=== PATIENT | male | born 1965 | race Caucasian/White ===

== ENCOUNTER 2018-08-15 08:19 | Outpatient (CLI) | payer BC, SELFPAY ==
[2018-08-15 08:38] LABS: HCT 44.5 % (40.0-50.0); HGB 15.8 g/dL (13.5-17.5)
[2018-08-15 09:26] LABS: Anion Gap 9.8 mmol/L (3-11); BUN 22 mg/dL (7-18); CO2 29.2 mmol/L (21.0-32.0); CREATININE 1.18 mg/dL (0.70-1.30); Chloride 101 mmol/L (98-107); Cholesterol 195 mg/dL (50-200); Glucose 110 mg/dL (70-100); HDL Cholesterol 45 mg/dL (40-60); LDL CHOLESTEROL 114 mg/dL (<100); Potassium 3.3 mmol/L (3.5-5.1); Sodium 140 mmol/L (136-145); Triglyceride 188 mg/dL (30-150)
== END 2018-08-15 08:39 ==
PROVIDERS: PCP General Practice; Visit Provider General Practice
DX: I10 Essential (primary) hypertension (principal); K92.2 Gastrointestinal hemorrhage, unspecified; Z00.00 Encounter for general adult medical examination without abnormal findings
CPT/HCPCS: 36415; 80051; 80061; 82947; 83721; 84520; 82565; 85014; 85018

== ENCOUNTER 2018-11-01 16:09 | Outpatient (CLI) | payer BC, SELFPAY ==
[2018-11-01 17:22] LABS: Glucose 103 mg/dL (70-100); Potassium 3.5 mmol/L (3.5-5.1)
== END 2018-11-01 16:29 ==
PROVIDERS: PCP General Practice; Visit Provider General Practice
DX: R73.09 Other abnormal glucose (principal); E87.6 Hypokalemia
CPT/HCPCS: 36415; 82947; 84132

== ENCOUNTER 2019-07-10 09:17 | Outpatient (REF) | payer BC, SELFPAY ==
[2019-07-10 11:48] LABS: HCT 44.3 % (40.0-50.0); HGB 15.6 g/dL (13.5-17.5); Mean Corp. HGB Concentration 35.2 g/dL (32.0-36.0); Mean Corpuscular Hemoglobin 29.8 pg (27.0-33.0); Mean Corpuscular Volume 84.7 fL (80-95); Mean Platelet Volume 10.9 fL (8.0-11.0); Platelet Count 255 x1000/uL (130-400); RBC 5.23 m/cumm (4.50-6.00); White Blood Cell Count 6.52 k/cumm (4.4-10.8)
[2019-07-10 11:51] LABS: ALT 29 U/L (16-63); AST 32 U/L (15-37); Albumin 4.2 g/dL (3.4-5.0); Alkaline Phosphatase 74 U/L (46-116); Anion Gap 15.4 mmol/L (3-11); BUN 15 mg/dL (7-18); Bilirubin, Total 0.6 mg/dL (0.2-1.0); CO2 25.6 mmol/L (21.0-32.0); CREATININE 1.07 mg/dL (0.70-1.30); Calcium 9.7 mg/dL (8.5-10.1); Calculated LDL 128 mg/dL; Chloride 101 mmol/L (98-107); Cholesterol 199 mg/dL (<200); Glucose 107 mg/dL (74-106); HDL Cholesterol 54 mg/dL (40-60); Potassium 3.7 mmol/L (3.5-5.1); Sodium 142 mmol/L (136-145); Total Protein 7.7 g/dL (6.4-8.2); Triglyceride 85 mg/dL (<150)
[2019-07-10 11:52] LABS: PROTEIN 18.6 mg/dL
[2019-07-10 11:56] LABS: COMMENT (LAB VIEW ONLY) 169.18 mg/dL; Microalb ug/mg Crea 3.7 ug/mg Cr
[2019-07-10 12:04] LABS: COMMENT (LAB VIEW ONLY) 170.08 mg/dL
== END 2019-07-10 09:37 ==
LOC: NCHCN 09:17
PROVIDERS: PCP General Practice; Visit Provider Nurse Practitioner Family
DX: I10 Essential (primary) hypertension (principal); R73.03 Prediabetes
CPT/HCPCS: 80053; 80061; 85027; 82043; 82565; 82570; 84156

== ENCOUNTER 2020-04-17 08:59 | Day surgery (SDC) | payer BC, SELFPAY ==
[2020-04-17 09:15] VITALS: BP 130/86; PULSE 80; RESP 18; TEMP 36.7; O2SAT 98
[2020-04-17] MEDS: Lactated Ringers 1,000 ML 80 ML IV (09:31)
--- NOTE | 2020-04-17 11:10 | W.PM.DSUDISC ---
Discharge Plan Disposition Patient Disposition: HOME Condition: Good Discharge Details Reason For Visit: colon scope Attending Provider: Juli Pope Primary Care Provider: René Brito Home Meds and New Rx's Prescriptions: No Action lisinopril 10 mg tablet 10 mg PO DAILY RF: 0 potassium chloride 10 mEq capsule, extended release 10 meq PO DAILY RF: 0 amlodipine [Norvasc] 5 mg tablet 5 mg PO DAILY RF: 0 metoprolol succinate 25 mg capsule,sprinkle,ER 24hr 25 mg PO DAILY RF: 0 hydrochlorothiazide 25 MG tablet 25 mg PO QAM RF: 0 Discharge Instructions Additional Instructions: Findings:Normal Follow up:repeat in 10 yrs time -Small light meals x24 hours -No lifting over 20 pounds or strenuous activity x24 hours Please call if you develop: fevers >101.5 Nausea or Vomiting Abdominal pain that is not transient DAY SURGERY UNIT POST COLONOSCOPY INSTRUCTIONS 1. Because there will be medication in your system for the next 24 hours, you may feel a little sleepy. Your coordination will be affected. Therefore: a. Do not drive or operate dangerous equipment for 24 hours. b. Do not drink alcohol beverages for 24 hours (not even beer). c. Plan to go home and rest for the day. 2. Generally there are no restrictions on your activity after a day or so has gone by, but you may feel a bit fatigued for a few days. 3 After you arrive home you may have a light meal and return to a normal diet as you can tolerate it without feeling sick to your stomach. 4. After surgery, you may feel pain or discomfort. This should be only transient, but if it persists please contact your doctor. 5. If there are any questions regarding the findings of your procedure, please feel free to contact your doctor. 6. If you are unable to contact your doctor with a problem, contact the hospital at [phone]. 7. Continue all your regular medications unless directed otherwise. I understand the above instructions and have no questions. Signature of Patient or Responsible Adult Escort Date/Time Name of Responsible Adult Escort Signature of Nurse Date/Time Discharge Orders Discharge Orders: Discharge Order (Routine); Ordered 04/17/20 Ordered By: Juli Pope
--- NOTE | 2020-04-17 11:22 | W.COLOREPORT ---
Date of service: 04/17/20 Time of Service: 11:22 Colonoscopy Report Date of procedure: 04/17/20 Pre-op diagnosis general: CRC screen Post-op diagnosis procedure note: same Surgeon: Juli Pope Anesthesia proc note operative: MAC Estimated blood loss (mL): 0 Pathology: none sent Complications: None Disposition: same day Prep: Miralax/Dulcolax Retraction Time: 10 mins Procedure Description: After informed consent was obtained the patient was taken to the procedure room and placed in a left decubitous position. Monitors were applied and a time out was done. The patients name, date of , procedure, allergies to medications and metal in their body was reviewed. The patient was then sedated. Once sedated and comfortable a rectal exam was done. External exam was normal. Internal exam revealed a normal sphincter tone and no palpable masses. The prostate nl. The scope was then introduced and retrofelexed. no internal hemorrhoids were identified. The scope was then advanced to the cecum w/out difficulty. The TI and appendiceal orifice were identified. The prep was good. The scope was then slowly retracted over 10 minutes back into the rectum. No polyps, diverticula, or AVMs identified. The mucosa is pink and healthy with good tone. The scope was removed and the patient was woken up and taken back to Same day surgery in stable condition. The patient tolerated the procedure well and there were no immediate complications. Follow up: The patient should follow up in 10 years unless they develop changes in bowel habits or other new gastrointestinal complaints.
[2020-04-17 11:52] VITALS: BP 120/73; PULSE 68; RESP 18; TEMP 36.1; O2SAT 97
== END 2020-04-17 12:03 | disposition home or self-care (01) ==
PROVIDERS: PCP Nurse Practitioner Family; Visit Provider Surgery
PROC: 0DJD8ZZ Inspection of Lower Intestinal Tract, Via Natural or Artificial Opening Endoscopic (ICD-10-PCS; CPT 45378; principal; 2020-04-17 10:00)
DX: Z12.11 Encounter for screening for malignant neoplasm of colon (principal); I10 Essential (primary) hypertension
CPT/HCPCS: 45378

== ENCOUNTER 2020-09-05 00:15 | Outpatient (REF) | payer BC, SELFPAY ==
[2020-09-04 16:31] LABS: Anion Gap 8.9 mmol/L (3-11); BUN 16 mg/dL (7-18); CO2 27.1 mmol/L (21.0-32.0); Calcium 9.7 mg/dL (8.5-10.1); Chloride 100 mmol/L (98-107); Glucose 103 mg/dL (74-106); Potassium 4.2 mmol/L (3.5-5.1); Sodium 136 mmol/L (136-145)
== END 2020-09-05 00:16 ==
LOC: NCHCN 00:15
PROVIDERS: PCP Nurse Practitioner Family; Visit Provider Nurse Practitioner Family
DX: I10 Essential (primary) hypertension (principal)
CPT/HCPCS: 80048

== ENCOUNTER 2021-02-13 16:46 | Outpatient (REF) | payer BC, SELFPAY ==
[2021-02-15 11:01] LABS: COVID-19 RT-PCR UVMMC Result Negative (Negative)
== END 2021-02-13 16:47 | disposition home or self-care (01) ==
LOC: LBN 16:46
PROVIDERS: PCP Nurse Practitioner Family; Visit Provider Family Medicine
DX: Z20.822 Contact with and (suspected) exposure to COVID-19 (principal); R05 Cough
CPT/HCPCS: U0003

== ENCOUNTER 2021-05-01 10:20 | Outpatient (REF) | payer BC, SELFPAY ==
[2021-05-02 12:22] LABS: COVID-19 RT-PCR UVMMC Result Negative (Negative)
== END 2021-05-01 10:21 | disposition home or self-care (01) ==
LOC: LBN 10:20
PROVIDERS: PCP Nurse Practitioner Family; Visit Provider Physician Assistant Medical
DX: Z20.822 Contact with and (suspected) exposure to COVID-19 (principal); J06.9 Acute upper respiratory infection, unspecified
CPT/HCPCS: U0003

== ENCOUNTER 2021-06-12 17:22 | Outpatient (REF) | payer BC, SELFPAY ==
[2021-06-12 16:56] LABS: Anion Gap 7.2 mmol/L (3-11); BUN 15 mg/dL (7-18); CO2 27.8 mmol/L (21.0-32.0); CREATININE 0.9 mg/dL (0.70-1.30); Calcium 9.9 mg/dL (8.5-10.1); Chloride 102 mmol/L (98-107); Glucose 103 mg/dL (74-106); Potassium 3.9 mmol/L (3.5-5.1); Sodium 137 mmol/L (136-145)
== END 2021-06-12 17:23 | disposition home or self-care (01) ==
LOC: NCHCN 17:22
PROVIDERS: PCP Nurse Practitioner Family; Visit Provider Nurse Practitioner Family
DX: I10 Essential (primary) hypertension (principal)
CPT/HCPCS: 80048

== ENCOUNTER 2022-05-18 22:33 | Outpatient (REF) | payer BC, SELFPAY ==
[2022-05-18 20:17] LABS: Anion Gap 7.7 mmol/L (3-11); BUN 17 mg/dL (7-18); CO2 27.3 mmol/L (21.0-32.0); CREATININE 1.3 mg/dL (0.70-1.30); Calcium 9.4 mg/dL (8.5-10.1); Chloride 102 mmol/L (98-107); Estimated GFR 63.68 (mL/min/1.73m2); Glucose 94 mg/dL (74-106); Potassium 3.9 mmol/L (3.5-5.1); Sodium 137 mmol/L (136-145)
== END 2022-05-18 22:34 | disposition home or self-care (01) ==
LOC: NCHCN 22:33
PROVIDERS: Visit Provider Nurse Practitioner Family
DX: Z00.00 Encounter for general adult medical examination without abnormal findings (principal); I10 Essential (primary) hypertension
CPT/HCPCS: 80048

== ENCOUNTER 2023-04-06 13:29 | Outpatient (REF) | payer BC, SELFPAY ==
[2023-04-06 19:54] LABS: ALT 26 U/L (16-63); AST 34 U/L (15-37); Albumin 4.1 g/dL (3.4-5.0); Alkaline Phosphatase 79 U/L (46-116); BUN 13 mg/dL (7-18); Bilirubin, Total 0.7 mg/dL (0.2-1.0); CREATININE 1.1 mg/dL (0.70-1.30); Calcium 9.5 mg/dL (8.5-10.1); Calculated LDL 108 mg/dL (<100); Chloride 101 mmol/L (98-107); Cholesterol 182 mg/dL (<200); Estimated GFR 77.33 (mL/min/1.73m2); Glucose 97 mg/dL (74-106); HDL Cholesterol 57 mg/dL (40-60); Potassium 4.1 mmol/L (3.5-5.1); Sodium 136 mmol/L (136-145); Total Protein 7.7 g/dL (6.4-8.2); Triglyceride 88 mg/dL (<150)
[2023-04-07 19:51] LABS: PSA, Screening 0.9 ng/mL (<=3.5)
== END 2023-04-06 13:30 | disposition home or self-care (01) ==
LOC: NCHCN 13:29
PROVIDERS: Visit Provider Nurse Practitioner Family
DX: I10 Essential (primary) hypertension (principal); Z12.5 Encounter for screening for malignant neoplasm of prostate; Z13.220 Encounter for screening for lipoid disorders
CPT/HCPCS: 80053; 80061; 84153

== ENCOUNTER 2024-02-24 11:51 | Outpatient (REF) | payer BC, SELFPAY ==
[2024-02-24 18:48] LABS: Abs Immature Grans 0.02 10^3/uL (0.0-0.06); Absolute Basophil Count 0.05 10^3/uL (0.0-0.2); Absolute Eosinophil Count 0.14 10^3/uL (0.0-0.7); Absolute Lymphocyte Count 2.03 10^3/uL (1.2-3.4); Absolute Neutrophil Count 3.88 10^3/uL (1.2-6.7); Basophils % 0.7 %; Eosinophils % 2.1 %; HCT 46.4 % (40.0-50.0); HGB 16.1 g/dL (13.5-17.5); Immature Grans % 0.3 %; Lymphocytes % 29.8 %; MCH 30.8 pg (27.0-33.0); MCHC 34.7 % (32.0-36.0); MCV 89 fL (80-95); MPV 10.8 fL (8.0-11.0); Monocytes % 10.3 %; Neutrophils % 56.8 %; Platelet Count 204 10^3/uL (130-400); RBC 5.22 10^6/uL (4.36-5.78); RDW 13.1 % (11.8-14.1); RDW-SD 42.5 fL; WBC 6.82 10^3/uL (4.4-10.8)
[2024-02-24 19:29] LABS: ALT 26 U/L (16-63); AST 27 U/L (15-37); Alkaline Phosphatase 75 U/L (46-116); Anion Gap 9.4 mmol/L (3-11); BUN 12 mg/dL (7-18); Bilirubin, Total 0.86 mg/dL (0.2-1.0); CO2 26.6 mmol/L (21.0-32.0); CREATININE 1.1 mg/dL (0.70-1.30); Calcium 9.4 mg/dL (8.5-10.1); Calculated LDL 107 mg/dL (<100); Chloride 102 mmol/L (98-107); Cholesterol 176 mg/dL (<200); Estimated GFR 76.85 (mL/min/1.73m2); Glucose 96 mg/dL (74-106); HDL Cholesterol 54 mg/dL (40-60); Potassium 4.4 mmol/L (3.5-5.1); Sodium 138 mmol/L (136-145); TSH (W/Ref FT4) 1.37 uIU/mL (0.36-3.74); Total Protein 7.3 g/dL (6.4-8.2); Triglyceride 77 mg/dL (<150); Vitamin D 25 Total 26.2 ng/mL (30-100)
== END 2024-02-24 11:52 | disposition home or self-care (01) ==
LOC: NCHCN 11:51
PROVIDERS: Visit Provider Nurse Practitioner Family
DX: R53.83 Other fatigue (principal); E55.9 Vitamin D deficiency, unspecified; Z13.220 Encounter for screening for lipoid disorders
CPT/HCPCS: 80053; 80061; 82306; 84443; 85025

== ENCOUNTER 2024-06-03 22:52 | Emergency (ER) | payer BC, SELFPAY ==
[2024-06-03 22:55] VITALS: BP 151/103; PULSE 65; RESP 16; TEMP 36.4; O2SAT 99
--- OUTSIDE RECORDS SUMMARY | 2024-06-03 22:56 | XMS_ITS | Encounter Summary ---
Author Organization [facility] Address [facility] [place] [address] Care Team Providers Care Sugar Cane Farm Manager Name Role Phone Omar Ballard MD Primary Care Provider Encounter Details Date Type Department Care Team (Latest Contact Info) Description 05/24/2016 1:30 PM EDT - 05/24/2016 1:58 PM EDT Hospital Encounter XRay at [address] [place] [id number] Physical examination of potential organ donor; Stem cell donor Discharge Disposition: Home Social History Tobacco Use Types Packs/Day Years Used Date Smoking Tobacco: Former Cigarettes 1 15 1 - 05/24/1996 Smokeless Tobacco: Never Sex and Gender Information Value Date Recorded Sex Assigned at Not on file Gender Identity Not on file Sexual Orientation Not on file documented as of this encounter Plan of Treatment Not on file documented as of this encounter Procedures Procedure Name Priority Date/Time Associated Diagnosis Comments XR CHEST PA AND LATERAL Routine 05/24/2016 1:51 PM EDT Physical examination of potential organ donor Stem cell donor documented in this encounter Results * XR Chest PA & Lateral (Generic) (05/24/2016 1:51 PM EDT) Anatomical Region Laterality Modality Chest N/A Digital Radiogra phy Impressions 05/24/2016 2:21 PM EDT No significant abnormality. Narrative 05/24/2016 2:21 PM EDT EXAMINATION: XR CHEST PA AND LATERAL (GENERIC) CLINICAL HISTORY: POTENTIAL STEM CELL DONOR TECHNIQUE: Standing PA and lateral chest COMPARISON: None FINDINGS: The lungs are clear. The cardiomediastinal silhouette and qi appear normal. No pleural effusion or significant bone abnormality is seen. Procedure Note Yo Medina MD - 05/24/2016 EXAMINATION: XR CHEST PA AND LATERAL (GENERIC) CLINICAL HISTORY: POTENTIAL STEM CELL DONOR TECHNIQUE: Standing PA and lateral chest COMPARISON: None FINDINGS: The lungs are clear. The cardiomediastinal silhouette and qi appearnormal. No pleural effusion or significant bone abnormality is seen. IMPRESSION No significant abnormality. James Jean MD IMG DX ORDERABLE S documented in this encounter Visit Diagnoses Diagnosis Physical examination of potential organ donor Other specified general medical examination Stem cell donor documented in this encounter Care Teams Sugar Cane Farm Manager Relationship Specialty Start Date End Date Omar Ballard MD [address] [facility],[place] [address] PCP - General Obstetrics and Gynecology 05/24/16 documented as of this encounter
--- OUTSIDE RECORDS SUMMARY | 2024-06-03 22:56 | XMS_ITS | Encounter Summary ---
Author Organization [facility] [place] [address] Care Team Providers Care Protective Clothing Issuer Name Role Phone Omar Ballard MD Primary Care Provider Encounter Details Date Type Department Care Team (Latest Contact Info) Description 05/24/2016 1:59 PM EDT - 05/24/2016 2:14 PM EDT Hospital Encounter [place] [phone] Physical examination of potential organ donor; Stem [...] Procedure Name Priority Date/Time Associated Diagnosis Comments EKG 12-LEAD Routine 05/24/2016 2:09 PM EDT Physical examination of potential organ donor Stem cell donor documented in this encounter Results * EKG 12 Lead (05/24/2016 2:09 PM EDT) Ventricular rate 49 BPM MUSE SYSTEM Atrial Rate 49 BPM MUSE SYSTEM P-R Interval 154 ms MUSE SYSTEM QRS Duration 146 ms MUSE SYSTEM Q-T Interval 464 ms MUSE SYSTEM QTC Calculated (Bezet) 419 ms MUSE SYSTEM Calculated P [place] 15 degrees MUSE SYSTEM Calculated R [place] 24 degrees MUSE SYSTEM Calculated T [place] 29 degrees MUSE SYSTEM INTERPRETATION Marked sinus bradycardia Right bundle branch block Abnormal ECG No previous ECGs available Confirmed by Tenzin Sanchez MD ([id number]) on 05/24/2016 4:16:35 PM MUSE SYSTEM 05/24/2016 2:09 PM EDT 05/24/2016 4:16 PM EDT James Jean MD ECG ORDERABLES MUSE SYSTEM documented in this encounter Visit Diagnoses Diagnosis Physical examination of potential organ donor Other specified general medical examination Stem cell donor documented in this encounter Care Teams Protective Clothing Issuer Relationship Specialty Start Date End Date Omar Ballard MD [address] [place] [address] PCP - General Obstetrics and Gynecology 05/24/16 documented as of this encounter
--- OUTSIDE RECORDS SUMMARY | 2024-06-03 22:56 | XMS_ITS | Encounter Summary ---
Author Organization [facility] Address [address] [place] [address] Care Team Providers Care Powder Mixer Name Role Phone Unavailable Primary Care Provider Unavailabl e Encounter Details Date Type Department Care Team (Late st Contact Info) Description 02/14/2021 Lab Requisition [facility] Pathology & Laboratory Medicine - [facility] [address] [place] [address] Outr Resulting Lab, Provider Social History Tobacco Use Types Packs/Day Years Used Date Smoking Tobacco: Never Assessed Sex and Gender Information Value Date Recorded Sex Assigned at Not on file Gender Identity Not on file Sexual Orientation Not on file documented as of this encounter Plan of Treatment Not on file documented as of this encounter Procedures Procedure Name Priority Date/Time Associated Diagnosis Comments ZZCOVID-19 TEST [facility] PCR Today 02/13/2021 15:35 EDT COVID-19 TESTING Routine 02/13/2021 15:3 5 EDT documented in this encounter Results * [facility] (02/13/2021 15:35 EDT) Swab ENTIRE NASOPHARYNX / Unknown 02/13/2021 15:35 EDT 02/14/2021 21:25 EDT Provider Outr Resulting Lab MICROBIOLOGY - GENERAL ORDERABLES [facility] [address] [place] [address] * COVID-19 TESTING (02/13/2021 15:35 EDT) COVID-19 rt-PCR Result Negative Negative 02/15/2021 10:55 EDT [facility] Comment: This test has not been FDA cleared or approved. This test has been authorized by FDA under an EUA for use by authorized laboratories. This test has been authorized only for detection of nucleic acid from 2019-nCoV, not for any other viruses or pathogens. This test is only authorized for the duration of the declaration that circumstances exist justifying the authorization of emergency use of in vitro diagnostic tests for detection and/or diagnosis of 2019-nCoV under section 564(b)(1) of Act, 21 U.S.C ?? 360bbb-3(b) (1), unless the authorization is terminated or revoked sooner. Negative results do not preclude 2019-nCoV infection and should not be used as the sole basis for treatment or other patient management decisions. Negative results must be combined with clinical observations, patient history, and epidemiological information. Testing was performed using the ambrosio SARS-CoV-2 assay ([employer] on the Ambrosio 6800 System Performing Lab Ambrosio [address] [facility] 02/15/2021 10:55 EDT [facility] Swab 02/13/2021 15:3 5 EDT 02/14/2021 21:25 EDT Provider Outr Resulting Lab MICROBIOLOGY - GENERAL ORDERABLES [facility] [address] [place] [address] documented in this encounter Visit Diagnoses Not on filedocumented in this encounter
--- OUTSIDE RECORDS SUMMARY | 2024-06-03 22:56 | XMS_ITS | Encounter Summary ---
Author Organization [facility] [place] [address] Care Team Providers Care Preschool Disability Teacher Name Role Phone Omar Ballard MD Primary Care Provider [phone] Reason for Visit * Reason Comments Advice Only Encounter Details Date Type Department Care Team (Late st Contact Info) Description 05/24/2016 2:30 PM EDT Office Visit Hematology and Oncology at [facility] [place] [address] Yessi Goldman, RN Stem cell donor Social History Tobacco Use Types Packs/Day Years Used Date Smoking Tobacco: Former Cigarettes 1 15 1 - 05/24/1996 Smokeless Tobacco: Never Sex and Gender Information Value Date Recorded Sex Assigned at Not on file Gender Identity Not on file Sexual Orientation Not on file documented as of this encounter Last Filed Vital Signs Vital Sign Reading Time Taken Comments Blood Pressure 153/88 05/24/2016 2:53 PM EDT Pulse 66 05/24/2016 2:53 PM EDT Temperature 36.6 ??C (97.9 ??F) 05/24/2016 2:53 PM ED T Respiratory Rate 18 05/24/2016 2:53 PM EDT Oxygen Saturation 99% 05/24/2016 2:53 PM EDT Inhaled Oxygen Concentration - - Weight 74.1 kg (163 lb 6.4 oz) 05/24/2016 2:53 P M EDT Height 169.5 cm (5' 6.73) 05/24/2016 2:53 PM ED T Body Mass Index 25.8 05/24/2016 2:53 PM EDT documented in this encounter Progress Notes * Yessi Goldman RN - 05/24/2016 2:30 PM EDT 05/24/16 BMT Coordinator Note/ Sibling donor BMT Coordinator: Healthy Donor Teaching Visit DIAGNOSIS: Healthy Sibling Donor REASON FOR VISIT: To introduce self as Bone Marrow Transplant Nurse Coordinator. Review plan for upcoming work-up to determine donor clearance. Reinforce the Educational Materials Global overview of Stem Cell Mobilization with Neupogen and Stem Cell Apheresis Global overview of bone marrow harvest collection and recovery period (as a back up method for stemcell collection) Subjective: I am ready to do this for my sister. Objective: Haris is here for history and phyiscal to determine if he is medically stable to proceed to a peripheral blood stem cell collection. I have coordinated the work- up and escorted the donor to the blood donor room for a venous assessment. The venous assessment indicates that there is no need for a catheter for him and the procedure can be done peripherally. The collection process discussed in detail and Haris came prepared after reading the material I senthim. PBSC : I reviewed potential side effects the likely side effects of G-CSF injections including flu-like symptoms, bone pain, nausea and headache. We discussed unlikely but potential side effects of injections that are more severe -severe pain, dizziness, fever, nausea/vomiting. We discussed that the symptoms will disappear usually 48 hours after the last injection. In addition -we discussed the rare but reported side effect of Neupogen -head bleed and splenic bleed. We discussed this bleeding risk and the need to seek emergency care right away for severe belly or head pain for immediate evaluation. We discussed what to expect during the stem cell aphresis collection process, including length of time on apheresis machine, possible side effects ie: hypocalcemia, dizziness and low platelets after procedure. We discussed the need to stay healthy and hydrated during the collection procedure We discussed the need to abstain from ETOH during and prior to mobilization due to marrow suppression. We discussed reporting new findings in his health that could delay or change the collection timeline. [place]: We discussed the process for a bone marrow harvest as a back up method of a collection in the eventthat his stem cells do not mobilize. Discussed anesthesia options and donor will meet the anesthesia staff the day of the procedure, he would like general anesthesia. We reviewed potential complications of the procedure and post op issues. I spent over 30 minutes in education session reviewing the above and ensuring that Haris understood the content explained in the consent form that he signed today in clinic. Assessment: The above information was reviewed with the patient and pt verbalized understanding. Haris was asking appropriate questions and came to the appointment well informed. Materials given to the Patient: No calendar at this time, no specific date for g-prime awaiting PET scan results on his sister to determine timeline. Contact numbers given for future questions or concerns: XXX RN business card. Plan: IDM's mailed and results expected by early next week RN/ Donor coordinator will forward to UNISHEAR OPERATOR to assess for completion of her note. Once donor is cleared we will review plans: Timeline for PBSC collection is unclear but wanted to clear donor so if we need to move quickly we can. Nurse Coordinator will call the donor the week of donation to confirm all plans and instructions are still understood. documented in this encounter Plan of Treatment Not on file documented as of this encounter Visit Diagnoses Diagnosis Stem cell donor documented in this encounter Care Teams Preschool Disability Teacher Relationship Specialty Start Date End Date Omar Ballard MD [address] [facility],[address] [address] PCP - General Obstetrics and Gynecology 05/24/16 documented as of this encounter
--- OUTSIDE RECORDS SUMMARY | 2024-06-03 22:56 | XMS_ITS | Referral Summary ---
Author Organization [facility] Address [address] [place] [address] Care Team Providers Care Brake Repairer Name Role Phone Unavailable Primary Care Provider Unavailabl e Social History Tobacco Use Types Packs/Day Years Used Date Smoking Tobacco: Never Assessed Sex and Gender Information Value Date Recorded Sex Assigned at Not on file Gender Identity Not on file Sexual Orientation Not on file Plan of Treatment Not on file
--- OUTSIDE RECORDS SUMMARY | 2024-06-03 22:56 | XMS_ITS | Clinical Summary ---
Author Organization [facility] Address [address] [place] [address] Care Team Providers Care Recovery Analyst Name Role Phone Unavailable Primary Care Provider Unavailabl e Social History Tobacco Use Types Packs/Day Years Used Date Smoking Tobacco: Never Assessed Sex and Gender Information Value Date Recorded Sex Assigned at Not on file Gender Identity Not on file Sexual Orientation Not on file Plan of Treatment Health Maintenance Due Date Last Done Comments Hepatitis C Screen 1965 Hepatitis B Vaccine (1 of 3 - 19+ 3-dose series) 02/07 COVID-19 Vaccine (2022- season) 2023
--- OUTSIDE RECORDS SUMMARY | 2024-06-03 22:56 | XMS_ITS | Encounter Summary ---
Author Organization [facility] Address [facility] [place] [address] Care Team Providers Care Car Shunter Name Role Phone Alejandro LUO MD, Aristides Rancho Primary Care Provider Encounter Details Date Type Department Care Team (Late st Contact Info) Description 05/10/2016 Orders Only [place]ematology [place] [id number] Fernie Grace MD [facility] [address] [place]EMATOLOGY [place] [address] Physical examination of potential organ donor; Stem cell donor Social History Tobacco Use Types Packs/Day Years Used Date Smoking Tobacco: Never Assessed Sex and Gender Information Value Date Recorded Sex Assigned at Not on file Gender Identity Not on file Sexual Orientation Not on file documented as of this encounter Plan of Treatment Not on file documented as of this encounter Results * Urinalysis with reflex Culture (05/24/2016 2:48 PM EDT) Glucose, Urine Dipstick Negative Negative mg/dL [facility] Protein, Urine Dipstick Negative Negative mg/dL [facility] Bilirubin, Urine Dipstick Negative Negative mg/dL [facility] Comment: Clinical correlation required for positive Urine Bilirubin results as false positive may occur with some drugs and drug related products. If a false positive is suspected a serum total bilirubin should be considered if clinically indicated. Urobilinogen, Urine Dipstick Normal Normal mg/dL [facility] pH, Urn (dipstick) 6.0 5.0 - 8.0 [facility] Blood, Urine Dipstick Negative Negative mg/dL [facility] Ketone, Urine Dipstick Negative Negative mg/dL [facility] Nitrite, Urine Dipstick Negative Negative [facility] Leukocytes, Urine Dipstick Negative Negative mcL [facility] Appearance, Urine Dipstick Clear Clear [facility] Specific [place] Urine Automated 1.014 1.002 - 1.030 [facility] Color, Urine Dipstick Yellow Yellow [facility] RBC, Urine <1 0 - 3 /HPF [facility] WBC, Urine <1 0 - 3 /HPF [facility] Squamous Epithelial Cells, Urine 1 <=4 /HPF [facility] Reflex to Culture No [facility] Urine specimen obtained by clean catch procedure (specimen) 05/24/2016 2:48 PM EDT 05/24/2016 2:51 PM EDT Narrative Resulting Agency Comment Spec In Lab James Jean MD URINE ORDERABLES Performing Organization Address City/Va Hospital/ZIP Co de Phone Number [facility] [place] [address] * Lactate Dehydrogenase (05/24/2016 2:41 PM EDT) Lactate Dehydrogenase 186 110 - 220 unit/L [facility] Blood specimen (specimen) 05/24/2016 2:41 PM EDT 05/24/2016 2:52 PM EDT Narrative Resulting Agency Comment Spec In Lab James Jean MD CHEMISTRY ORDERA BLES Performing Organization Address City/Va Hospital/ZIP Co de Phone Number [facility] [place] [address] * (ABNORMAL) Comprehensive metabolic panel (non-fasting) (05/24/2016 2:41 PM EDT) Glucose 100 65 - 199 mg/dL [facility] Comment:Diabetes: >=200 mg/d L plus symptoms Blood Urea Nitrogen 17 10 - 20 mg/dL [facility] Creatinine 1.11 0.80 - 1.50 mg/dL [facility] Comment: Please note that the pediatric reference intervals supplied above were not validated at [facility] [place]. Results from pediatric patients should be interpreted in conjunction to the patient's age, height and muscle mass. Sodium 141 135 - 145 mmol/L [facility] Potassium 3.6 3.5 - 5.0 mmol/L [facility] Comment: Please note: ??Patients with WBC >100,000 may have falsely elevated Potassium levels. ??For accurate Potassium quantification in these patients send serum separator tube (gold top) for subsequent determinations. ??Contact the Clinical Chemistry Laboratory if there are any questions. Chloride 99 98 - 107 mmol/L [facility] Carbon Dioxide 26 22 - 31 mmol/L [facility] Anion Gap 16(H) 5 - 15 mmol/L [facility] Calcium 9.8 8.5 - 10.5 mg/dL [facility] Protein, Total 7.6 6.1 - 8.0 gm/dL [facility] Albumin 4.6 3.2 - 5.2 gm/dL [facility] Aspartate Aminotransferase 33 0 - 39 unit/L [facility] Alanine Aminotransferase 20 0 - 55 unit/L [facility] Alkaline Phosphatase 65 40 - 120 unit/L [facility] Bilirubin, Total 0.8 0.2 - 1.3 mg/dL [facility] Bilirubin, Direct 0.2 0.0 - 0.3 mg/dL [facility] Est Glomerular Filtration Rate >60 >=60 [facility] Comment: This estimated GFR (eGFR) value was calculated using the MDRD equation which has been validated on patients between the ages of 18 and 70. The MDRD should not be used to assess kidney function in patients < 18 years of age or in patients with extremes of body mass, or in patients with acute kidney failure. This value should be multiplied by 1.2 for patients. For further information please copy and paste the following links into your internet browser. [email or web address] Blood specimen (specimen) 05/24/2016 2:41 PM EDT 05/24/2016 2:52 PM EDT Narrative Resulting Agency Comment Spec In Lab James Jean MD CHEMISTRY ORDERA BLES Performing Organization Address [facility] Hospital/[facility] Co de Phone Number [facility] [place] [address] * EKG 12 Lead (05/24/2016 2:09 PM EDT) Ventricular rate 49 BPM MUSE SYSTEM Atrial Rate 49 BPM MUSE SYSTEM P-R Interval 154 ms MUSE SYSTEM QRS Duration 146 ms MUSE SYSTEM Q-T Interval 464 ms MUSE SYSTEM QTC Calculated (Bezet) 419 ms MUSE SYSTEM Calculated P [place] 15 degrees MUSE SYSTEM Calculated R [place] 24 degrees MUSE SYSTEM Calculated T [place] 29 degrees MUSE SYSTEM INTERPRETATION Marked sinus bradycardia Right bundle branch block Abnormal ECG No previous ECGs available Confirmed by Tenzin Sanchez MD ([id number]) on 05/24/2016 4:16:35 PM MUSE SYSTEM 05/24/2016 2:09 PM EDT 05/24/2016 4:16 PM EDT James Jean MD ECG ORDERABLES Performing Organization Address [facility] de Phone Number MUSE SYSTEM * XR Chest PA & Lateral (Generic) [...] specified general medical examination Stem cell donor Physical examination of potential organ donor Other specified general medical examination Stem cell donor documented in this encounter Care Teams Car Shunter Relationship Specialty Start Date End Date Aristides Allen III, MD [address] [place] [id number] PCP - General 06/23/10 05/23/16 documented as of this encounter
--- OUTSIDE RECORDS SUMMARY | 2024-06-03 22:56 | XMS_ITS | Clinical Summary ---
Author Organization [facility] Address [facility] [place] [address] Care Team Providers Care Senior Oracle Database Developer Name Role Phone Omar Ballard MD Primary Care Provider Allergies No known active allergies Medications Medication Sig Dispensed Refills Start Date End Date Status hydroCHLOROthiazide (HYDRODIURIL) 25 mg Tablet Take 25 mg by mouth daily. Active atenolol (TENORMIN) 25 mg Tablet Take 25 mg by mouth daily. Active Social History Tobacco Use Types Packs/Day Years Used Date Smoking Tobacco: Former Cigarettes 1 15 1 - 05/24/1996 Smokeless Tobacco: Never Sex and Gender Information Value Date Recorded Sex Assigned at Not on file Gender Identity Not on file Sexual Orientation Not on file Last Filed Vital Signs Vital Sign Reading [...] Mass Index 25.8 05/24/2016 2:53 PM EDT Plan of Treatment Health Maintenance Due Date Last Done Comments CT Colonography 1965 Colonoscopy 1965 Colorectal Cancer Screening 1965 FIT DNA 1965 FIT 1965 Sigmoidoscopy (10 year) with FIT yearly 1965 Sigmoidoscopy 1965 HIV screen 02/07/1982 Hepatitis C Screening 02/07/1982 Lipid Screening 02/07/1982 Tetanus/Diphtheria/Pertussis Vaccines (1 - Tdap) 02/07 Zoster vaccine (1 of 2) 02/07/2014 Advance Directive 02/07/2019 Covid-19 Vaccine (1 - season) 2024 Influenza (Flu) vaccine (1 o f 1 - Influenza standard series) 04/01/2024 Care Teams Senior Oracle Database Developer Relationship Specialty Start Date End Date Omar Ballard MD [address] [facility],[address] [address] PCP - General Obstetrics and Gynecology 05/24/16
--- OUTSIDE RECORDS SUMMARY | 2024-06-03 22:56 | XMS_ITS | Encounter Summary ---
Author Organization [facility] [place] [address] Care Team Providers Care Candle Cutter Name Role Phone Omar Ballard MD Primary Care Provider Encounter Details Date Type Department Care Team (Late st Contact Info) Description 05/24/2016 3:15 PM EDT Office Visit Hematology [place] [address] Fernie Grace MD [facility] [address] [place] [address] Ev Santillan, DIRECTOR ORACLE [facility] [address] [place] [address] Stem cell donor Social History Tobacco Use Types Packs/Day Years Used Date Smoking Tobacco: Former Cigarettes 1 15 1 - 05/24/1996 Smokeless Tobacco: Never Sex and Gender Information Value Date Recorded Sex Assigned at Not on file Gender Identity Not on file Sexual Orientation Not on file documented as of this encounter Progress Notes * Ev Santillan, DIRECTOR ORACLE - 05/24/2016 3:15 PM EDT [facility] [place] [address] ALLOGENEIC PERIPHERAL STEM CELL/BONE MARROW DONOR EVALUATION CHIEF COMPLAINT: Haris Werner is a 51 y.o. male being medically evaluated for as a candidate for stem cell donation. HISTORY OF PRESENT CONDITION: Healthy ACTIVE MEDICAL PROBLEMS: 1. HTN - Dx 2013 HOSPITALIZATIONS: 2. Hernia operation PAST MEDICAL HISTORY: PAST SURGICAL HISTORY: 1. Hernia repair - 1995 - [facility] SOCIAL HISTORY: ??? Haris lives in [facility] with Lindsay Duenas ??? Occupation: builder, property management ??? Tobacco: quit 20 years ago - 15 pack year history ??? ETOH: couple mixed drinks - whisky/day ??? HIV/Transmissable Infection Risks: No high risk behaviors Tattooing - if present dates: none Ear or Body Piercing- if present: dates: none FAMILY HISTORY: ??? Father: 2016 CVA ??? Mother: Alive and well - COPD/smoker ??? Siblings: Sister - lymphoma - 2 brothers - alive and well MEDICATIONS: atenolol and HCTZ ALLERGIES: None REVIEW OF SYSTEMS: Energy level: Good Recent infections/ anitbiotics: None Pain: No Appetite: Good Fevers/chills/sweats: No Bruising/bleeding/melena: No Recent infections: No Nausea/vomiting/diarrhea/constipation: No SOB/BENDER/asthma/sleep apnea: No- does snore Chest Pains/heart attack/Stroke: No Change in adenopathy or other masses: left shoulder mass - has had for years with no changes Unexpected weight loss or gain: No Skin rashes or petechiae: No Wears contact ??? History of blood transfusions: None ??? History of tissue transplant [bone or cornea]? None ??? Any history of concussion or head injury: None ??? Any history of cancer, including leukemia: None ??? History of toxin exposures: None ??? Family history of blood diseases: sister with NHL ??? Immunizations within the last month, including smallpox: None ??? Any close contact with anyone who has received smallpox vaccine: No ??? Planning any immunizations: No ??? History of hepatitis: None ??? History of IV drug use/accidental needle stick: None ??? History of DVT or PE (for PBSC donors): None ??? History of iritis or episcleritis(for PBSC donors): None ??? History of autoimmune disease including rheumatic diseases and thyroid disorders (for PBSC donors): None ??? History of Parasitic blood disease, such as leishmaniasis or babesiosis? None ??? History of positive west Nile Virus: No ??? In the past 3 years have you had malaria?: No ??? Have you or any relatives ever been diagnosed with Crutxzfeldt- Pato Disease: No ??? In the past 3 years have you lived outside the [place]? No ??? Travel in the last year outside of the [facility] [place][where and how long]? No PHYSICAL EXAM: Vital Signs: There were no vitals taken for this visit. GENERAL: Well-developed, well-nourished, well-appearing 51 y.o. male in no acute distress. HEENT: Sinuses non-tender. Oral pharynx clear. No hyperemia, exudative plaques or lesions. NECK: Supple without palpable masses or adenopathy. BREASTS: Normal bilaterally. CARDIAC: Regular rate and rhythm without S3,S4 or murmurs. LUNGS: Clear to auscultation bilaterally. ABDOMEN: Soft, flat, non-tender and non-distended without palpable masses or hepatosplenomegaly. Normoactive bowel sounds. EXTREMITIES: No cyanosis or edema. SKIN: No rashes, bruises or petechiae. LYMPH: No palpable lymphadenopathy. NEURO: Alert and oriented to person, place and time. LABORATORY STUDIES: No results found for this or any previous visit (from the past 72 hour(s)). IDM's: PENDING CXR: EXAMINATION: XR CHEST PA AND LATERAL (GENERIC) ?? CLINICAL HISTORY: POTENTIAL STEM CELL DONOR ?? TECHNIQUE: Standing PA and lateral chest ?? COMPARISON: None ?? FINDINGS: The lungs are clear. The cardiomediastinal silhouette and qi appear normal. No pleural effusion or significant bone abnormality is seen. ?? IMPRESSION No significant abnormality. ASSESSMENT/PLAN: The Donor Health History Questionnaire has been reviewed with the following areas of concern noted :1. Mildly abnormal EKG - will ask Cardiology to review to ensure no increased risk of donating. 2. CMV positive Haris Werner is otherwise medically stable, meets screening and testing criteria, and is eligible for collection PENDING CARDIOLOGY REVIEW At the completion of our discussion, Haris Werner voiced understanding of the process and the desire to proceed if eligible. Total time of visit: 60 min. Time spent in counseling and coordination of care: 50 min 86 documented in this encounter Plan of Treatment Not on file documented as of this encounter Procedures Procedure Name Priority Date/Time Associated Diagnosis Comments INFECTIOUS DISEASE SERO PANEL Routine 05/24/2016 3:16 PM EDT documented in this encounter Results * Infectious Disease Sero Panel (05/24/2016 3:16 PM EDT) Sero Panel Patient: Haris Werner Date of : 1965 Identification Number: [id number] Date Sample Drawn: 05/24/2016 The following serological tests were performed: ABO/Rh type = O Negative Antibody Screen= Negative ?[Ref Value: Negative] Hepatitis B Core Antibody = Negative ? [Ref Value: Negative] Hepatitis B Surface Antigen = Negative ?? [Ref Value: Negative] Hepatitis C Virus = Negative ? [Ref Value: Negative] HIV 1/2 Antibody = Negative ?[Ref Value: Negative] HTLV I/II Antibody = Negative ?[Ref Value: Negative] JARAD Multiplex = Negative ? [Ref Value: Negative] Syphilis Serology = Negative ? [Ref Value: Non-reactive] West Nile Virus JRAAD = Negative ? [Ref Value: Negative] Chagas Antibody = Negative ? [Ref Value: Negative] CMV Antibody = Positive ?[Ref Value: Negative] All testing was performed by: [employer] [id number] [place] [address] CLIA ID Number: [id number] [facility] Blood specimen (specimen) Other / Unknown 05/24/2016 3:16 PM EDT 05/27/2016 3:18 PM EDT Narrative Resulting Agency Comment Spec In Lab Ethel Conroy MD BLOOD BANK LAB ORDER AARON [facility] [place] [address] documented in this encounter Visit Diagnoses Diagnosis Stem cell donor documented in this encounter Care Teams Candle Cutter Relationship Specialty Start Date End Date Omar Ballard MD [address] [facility] [address] [place] [address] PCP - General Obstetrics and Gynecology 05/24/16 documented as of this encounter
--- OUTSIDE RECORDS SUMMARY | 2024-06-03 22:56 | XMS_ITS | Encounter Summary ---
Author Organization [facility] Address [address] [place] [address] Care Team Providers Care Salesperson Flying Squad Name Role Phone Unavailable Primary Care Provider Unavailabl e Encounter Details Date Type Department Care Team (Late st Contact Info) Description 05/01/2021 Lab Requisition [facility] [place] Pathology & Laboratory Medicine - [facility] [address] [place] [address] Outr Resulting Lab, Provider Social History Tobacco [...] Priority Date/Time Associated Diagnosis Comments ZZCOVID-19 TEST [facility] PCR Today 05/01/2021 9:30 EDT COVID-19 TESTING Routine 05/01/2021 9:30 EDT documented in this encounter Results * COVID-19 TEST [facility] PCR (05/01/2021 9:30 EDT) Swab ENTIRE NASOPHARYNX / Unknown 05/01/2021 9:30 EDT 05/01/2021 22:20 EDT Provider Outr Resulting Lab MICROBIOLOGY - GENERAL ORDERABLES [facility] [address] [place] [address] * COVID-19 TESTING (05/01/2021 9:30 EDT) COVID-19 rt-PCR Result Negative Negative 05/02/2021 12:16 EDT [facility] Comment: This test has not [...] clinical observations, patient history, and epidemiological information. Performed on the [employer] Fusion instrument Performing Lab [place] [facility] 05/02/2021 12:16 EDT [facility] Swab 05/01/2021 9:30 EDT 05/01/2021 22:20 EDT Provider Outr Resulting Lab MICROBIOLOGY - GENERAL ORDERABLES [facility] [address] [place] [address] documented in this encounter Visit Diagnoses Not on filedocumented in this encounter
--- OUTSIDE RECORDS SUMMARY | 2024-06-03 22:56 | XMS_ITS | Encounter Summary ---
Author Organization Formerly [facility] [place] [address] Care Team Providers Care Electromechanical Technician Name Role Phone Omar Ballard MD Primary Care Provider Encounter Details Date Type Department Care Team (Latest Contact Info) Description 05/24/2016 2:15 PM EDT - 05/24/2016 11:59 PM EDT Hospital Encounter Hematology and Oncology at [facility] [place] [address] Physical examination of potential organ donor; Stem cell donor Discharge Disposition: Home Social History Tobacco Use Types Packs/Day Years Used Date Smoking Tobacco: Former Cigarettes 1 15 1 - 05/24/1996 Smokeless Tobacco: Never Sex and Gender Information Value Date Recorded Sex Assigned at Not on file Gender Identity Not on file Sexual Orientation Not on file documented as of this encounter Medications at Time of Discharge Medication Sig Dispensed Refills Start Date End Date hydroCHLOROthiazide (HYDRODIURIL) 25 mg Tablet Take 25 mg by mouth daily. atenolol (TENORMIN) 25 mg Tablet Take 25 mg by mouth daily. documented as of this encounter Plan of Treatment Not on file documented as of this encounter Procedures Procedure Name Priority Date/Time Associated Diagnosis Comments URINALYSIS WITH REFLEX CULTURE Routine 05/24/2016 2:48 PM EDT Physical examination of potential organ donor Stem cell donor HEMOGRAM Routine 05/24/2016 2:41 PM EDT Physical examination of potential organ donor Stem cell donor DIFFERENTIAL, AUTOMATED Routine 05/24/2016 2:41 PM EDT Physical examination of potential organ donor Stem cell donor ABO/RH TYPING Routine 05/24/2016 2:41 PM EDT Physical examination of potential organ donor Stem cell donor CBC (WITH DIFF) Routine 05/24/2016 2:41 PM EDT Physical examination of potential organ donor Stem cell donor ANTIBODY SCREEN Routine 05/24/2016 2:41 PM EDT Physical examination of potential organ donor Stem cell donor TYPE AND SCREEN ([facility]/CGP/LO) Routine 05/24/2016 2:41 PM EDT Physical examination of potential organ donor Stem cell donor LACTATE DEHYDROGENASE Routine 05/24/2016 2:41 PM EDT Physical examination of potential organ donor Stem cell donor COMPREHENSIVE METABOLIC PANEL Routine 05/24/2016 2:41 PM EDT Physical examination of potential organ donor Stem cell donor documented in this encounter Results * Urinalysis with reflex Culture (05/24/2016 2:48 PM EDT) Glucose, Urine Dipstick Negative Negative mg/dL [facility] Protein, Urine Dipstick Negative Negative mg/dL [facility] Bilirubin, Urine Dipstick Negative Negative mg/dL [facility] Comment: Clinical correlation required for positive Urine Bilirubin results as false positive may occur with some drugs and drug related products. If a false positive is suspected a serum total bilirubin should be considered if clinically indicated. Urobilinogen, Urine Dipstick Normal Normal mg/dL [facility] pH, Urn (dipstick) 6.0 5.0 - 8.0 [facility] Blood, Urine Dipstick Negative Negative mg/dL [facility] Ketone, Urine Dipstick Negative Negative mg/dL [facility] Nitrite, Urine Dipstick Negative Negative [facility] Leukocytes, Urine Dipstick Negative Negative [facility] Appearance, Urine Dipstick Clear Clear [facility] Specific [place]mon Urine Automated 1.014 1.002 - 1.030 [facility] Color, Urine Dipstick Yellow Yellow [facility] RBC, Urine <1 0 - 3 /HPF [facility] WBC, Urine <1 0 - 3 /HPF [facility] Squamous Epithelial Cells, Urine 1 <=4 /HPF [facility] Reflex to Culture No [facility] Urine specimen obtained by clean catch procedure (specimen) 05/24/2016 2:48 PM EDT 05/24/2016 2:51 PM EDT Narrative Resulting Agency Comment Spec In Lab James Jean MD URINE ORDERABLES Performing Organization Address City/[facility]/ZIP Co de Phone Number [facility] [place] [address] * Antibody screen (05/24/2016 2:41 PM EDT) Ab Screen Interp Negative [facility] Expires at [id number] on: 05/27/2016 [facility] Blood specimen (specimen) 05/24/2016 2:41 PM EDT 05/24/2016 2:53 PM EDT Narrative Resulting Agency Comment Spec In Lab James Jean MD BLOOD BANK LAB O RDERABLES Performing Organization Address [facility]/ZIP Co de Phone Number [facility] [place] [address] * ABO/Rh Typing (05/24/2016 2:41 PM EDT) ABORH Type O Neg [facility] Blood specimen (specimen) 05/24/2016 2:41 PM EDT 05/24/2016 2:53 PM EDT Narrative Resulting Agency Comment Spec In Lab James Jean MD BLOOD BANK LAB O RDERABLES Performing Organization Address City/[facility]/ZIP Co de Phone Number [facility] [place] [address] * Differential, Automated (05/24/2016 2:41 PM EDT) Neutrophil % 59.6 % [facility] Neutrophil Absolute 5.03 1.70 - 6.10 x10(3)/[facility] Lymph % 30.2 % [facility] Lymphocytes Abs 2.6 0.9 - 3.2 x10(3)/[facility] Monocyte % 8.3 % [facility] Monocyte Abs 0.7 0.3 - 0.9 x10(3)/[facility] Eos % 0.8 % [facility] Eosinophils Abs 0.1 0.0 - 0.4 x10(3)/[facility] Basophil % 0.7 % [facility] [place] Baso Absolute 0.1 0.0 - 0.1 x10(3)/[facility] Immature Gran % 0.40 % [facility] Comment: Immature granulocytes(IG's)percentage and absolute count will include metamyelocytes, myelocytes, and promyelocytes. Blood smears from CBCs yielding IG's will be scanned manually for concordance. If this scan disagrees with the automated IG or if promyelocytes are noted, a manual differential will be performed. Immature Gran Absolute 0.03 0.00 - 0.04 x10(3)/[facility] Blood specimen (specimen) 05/24/2016 2:41 PM EDT 05/24/2016 2:52 PM EDT Narrative Resulting Agency Comment Spec In Lab James Jean MD HEMATOLOGY ORDER AARON [facility] [place] [place] [address] * Hemogram (05/24/2016 2:41 PM EDT) White Blood Cell 8.4 4.0 - 9.5 x10(3)/[facility] Red Blood Cell 5.34 4.58 - 5.54 x10(6)/[facility] Hemoglobin 15.8 13.7 - 16.5 gm/dL [facility] Hematocrit 44.6 40.5 - 48.5 % [facility] Mean Cell Volume 83.5 82.9 - 93.1 [facility] Mean Cell Hemoglobin 29.6 27.5 - 32.1 pg [facility] Mean Cell Hemoglobin Concentration 35.4 32.0 - 35.7 gm/dL [facility] Platelet 284 145 - 357 x10(3)/[facility] RDW Standard Deviation 37.6 36.0 - 45.0 [facility] RDW coefficient of variation 12.6 11.4 - 13.8 % [facility] Mean Platelet Volume 10.6 7.6 - 12.9 [facility] NRBC% auto 0.0 % [facility] NRBC Absolute 0.000 0.000 - 0.000 x10(3)/[facility] Blood specimen (specimen) 05/24/2016 2:41 PM EDT 05/24/2016 2:52 PM EDT Narrative Resulting Agency Comment Spec In Lab James Jean MD HEMATOLOGY ORDER AARON Performing Organization Address [facility] Co de Phone Number [facility] [place] [address] * Lactate Dehydrogenase (05/24/2016 2:41 PM EDT) Lactate Dehydrogenase 186 110 - 220 unit/L [facility] Blood specimen (specimen) 05/24/2016 2:41 PM EDT 05/24/2016 2:52 PM EDT Narrative Resulting Agency Comment Spec In Lab James Jean MD CHEMISTRY ORDERA BLES Performing Organization Address [facility] Co de Phone Number [facility] [place] [address] * (ABNORMAL) Comprehensive metabolic panel (non-fasting) (05/24/2016 2:41 PM EDT) Glucose 100 65 - 199 mg/dL [facility] Comment:Diabetes: >=200 mg/d L plus symptoms Blood Urea Nitrogen 17 10 - 20 mg/dL [facility] Creatinine 1.11 0.80 - 1.50 mg/dL [facility] Comment: Please note that the pediatric reference intervals supplied above were not validated at [facility]. Results from pediatric patients should be interpreted in conjunction to the patient's age, height and muscle mass. Sodium 141 135 - 145 mmol/L [facility] Potassium 3.6 3.5 - 5.0 mmol/L [facility] Comment: Please note: ??Patients with WBC >100,000 may have falsely elevated Potassium levels. ??For accurate Potassium quantification in these patients send serum separator tube (gold top) for subsequent determinations. ??Contact the Clinical Chemistry Laboratory if there are any questions. Chloride 99 98 - 107 mmol/L [facility] Carbon Dioxide 26 22 - 31 mmol/L [facility] Anion Gap 16(H) 5 - 15 mmol/L [facility] Calcium 9.8 8.5 - 10.5 mg/dL [facility] Protein, Total 7.6 6.1 - 8.0 gm/dL [facility] Albumin 4.6 3.2 - 5.2 gm/dL [facility] Aspartate Aminotransferase 33 0 - 39 unit/L [facility] Alanine Aminotransferase 20 0 - 55 unit/L [facility] Alkaline Phosphatase 65 40 - 120 unit/L [facility] Bilirubin, Total 0.8 0.2 - 1.3 mg/dL [facility] Bilirubin, Direct 0.2 0.0 - 0.3 mg/dL [facility] Est Glomerular Filtration Rate >60 >=60 [facility] Comment: This estimated GFR (eGFR) [...] the following links into your internet browser. [email or web address] Blood specimen (specimen) 05/24/2016 2:41 PM EDT 05/24/2016 2:52 PM EDT Narrative Resulting Agency Comment Spec In Lab James Jean MD CHEMISTRY ORDERA BLES [facility] [place] [address] documented in this encounter Visit Diagnoses Diagnosis Physical examination of potential organ donor Other specified general medical examination Stem cell donor documented in this encounter Care Teams Electromechanical Technician Relationship Specialty Start Date End Date Omar Ballard MD [address] [facility],[address] [address] PCP - General Obstetrics and Gynecology 05/24/16 documented as of this encounter
--- OUTSIDE RECORDS SUMMARY | 2024-06-03 22:56 | XMS_ITS | Encounter Summary ---
Author Organization [facility] Address [address] [place] [address] Care Team Providers Care Music Supervisor Name Role Phone Unavailable Primary Care Provider Unavailabl e Encounter Details Date Type Department Care Team (Late st Contact Info) Description 04/07/2023 Lab Requisition [facility] Pathology & Laboratory Medicine - [facility] [address] [place] [address] Outr Resulting Lab, Provider Social History Tobacco [...] Procedure Name Priority Date/Time Associated Diagnosis Comments PSA TOTAL, DIAGNOSTIC Routine 04/06/2023 11:53 EDT documented in this encounter Results * PSA TOTAL, DIAGNOSTIC (04/06/2023 11:53 EDT) PSA 0.9 <=3.5 ng/mL 04/07/2023 19:[address] [facility] Blood VENOUS BLOOD / Unknown 04/06/2023 11:53 EDT 04/07/2023 17:[address] [facility] - 04/07/2023 19:47 EDT NOTE: Serum PSA concentration should not be interpreted as absolute evidence for the presence or absence of malignant disease. Assayed on Siemens ADVIA Centaur XPT using chemiluminescent technology.??Values obtained by using different assay methods cannot be used interchangeably. Provider Outr Resulting Lab CHEMISTRY & BLOOD GAS ORDERABLES [facility] [address] [place] [address] documented in this encounter Visit Diagnoses Not on filedocumented in this encounter
--- OUTSIDE RECORDS SUMMARY | 2024-06-03 22:56 | XMS_ITS | Encounter Summary ---
Author Organization [facility] [place] [address] Care Team Providers Care Field Service Engineer Name Role Phone Omar Ballard MD Primary Care Provider [phone] Encounter Details Date Type Department Care Team (Latest Contact Info) Description 05/24/2016 1:00 PM EDT - 05/24/2016 1:29 PM EDT Hospital Encounter [place] [address] Discharge Disposition: Home Social History Tobacco Use [...] documented as of this encounter Visit Diagnoses Not on filedocumented in this encounter Care Teams Field Service Engineer Relationship Specialty Start Date End Date Omar Ballard MD [address] [facility],[address] [address] PCP - General Obstetrics and Gynecology 05/24/16 documented as of this encounter
[2024-06-03 23:01] VITALS: BP 151/103; PULSE 65; RESP 16; TEMP 36.4; O2SAT 99
--- NOTE | 2024-06-03 23:03 | ED.GENADUL_ITS ---
Discharge Plan Disposition Patient Disposition: Home Condition: Good Discharge Details Clinical Impression: Pain, dental Primary Care Provider: Unknown,Unknown ED Provider: Constanza Mai Home Meds and New Rx's Prescriptions: New amoxicillin-pot clavulanate 875-125 mg tablet 1 tab PO Q12H Qty: 13 0RF Continued lisinopril 10 mg tablet 10 mg PO DAILY amlodipine [Norvasc] 5 mg tablet 5 mg PO DAILY Discontinued metoprolol succinate 25 mg capsule,sprinkle,ER 24hr 25 mg PO DAILY hydrochlorothiazide 25 MG tablet 25 mg PO QAM Discharge Instructions Instructions: Dental Pain ED Additional Instructions: Tylenol and ibuprofen over the counter for pain; follow the directions on the bottle. Take the antibiotic twice a day for the next 7 days until it is all gone. Call your dentist on Tuesday to try to move up your appointment. Return to the emergency department for new or worsening symptoms including fever, neck pain, facial swelling, inability to open your mouth, or if you have any other concerns. HPI General Mode of arrival: ambulatory . Date/Time Provider Initiated Documentation: 06/03/24 23:00 . Limitations to Documentation: no limitations . Information obtained by: patient . HPI Narrative: 59yo M with HTN presenting with left lower incisor/canine pain for the past two days. Has had extensive dental work including a bridge and known perioodontal disease, next dental appointment scheduled for next month. Pain has been worsening, not relieved by home ibuprofen. Gum also feels a little swollen. No neck pain, facial swelling, difficulty swallowing, tirsmus, or fever. Otherwise in his usual state of health. Related Data Home Medications ?Medication ?Instructions ?Recorded ?Confirmed amlodipine 5 mg tablet (Norvasc) 5 mg PO DAILY 04/01/20 06/03/24 lisinopril 10 mg tablet 10 mg PO DAILY 04/01/20 06/03/24 amoxicillin 875 mg-potassium 1 tab PO Q12H #13 tabs 06/03/24 clavulanate 125 mg tablet Previous Rx's ?Medication ?Instructions ?Recorded amoxicillin 875 mg-potassium 1 tab PO Q12H #13 tabs 06/03/24 clavulanate 125 mg tablet Allergies Allergy/AdvReac Type Severity Reaction Status Date / Time No Known Allergies Allergy Unverified 06/03/24 23:17 General Stated Complaint: DentalOral DANNIELLE: 4 Review of Systems Narrative: see HPI Exam Narrative Exam Narrative: General: Alert, well appearing, well nourished, in no acute distress. Head: Normocephalic, atraumatic. Facial bones nontender. Neck: Trachea midline, ?Neck supple. Anterior neck nontender. ENT: ?MMM.? No trismus. Tooth #23,#22 tender to percusion, surrounding gingiva erthythematous with no abscess evident Cardiac: ?No cyanosis. Resp: No respiratory distress. Speaking in full sentences. Abd: ?Non-distended Extremities: ?No deformities.? Neurologic: GCS 15. ? Moves all extremities freely against gravity Course Vital Signs Vital signs: Vital Signs Temperature 36.4 C L 06/03/24 22:55 Pulse 65 06/03/24 22:55 Respiratory Rate 16 06/03/24 22:55 Blood Pressure 151/103 H 06/03/24 22:55 Pulse Oximetry 99 06/03/24 22:55 Temperature 36.4 C L 06/03/24 23:01 Temperature Source Temporal Artery Scan 06/03/24 23:01 Pulse 65 06/03/24 23:01 Respiratory Rate 16 06/03/24 23:01 Respiratory Effort Normal, Non-Labored 06/03/24 23:01 Blood Pressure 151/103 H 06/03/24 23:01 Blood Pressure Position Sitting 06/03/24 23:01 Pulse Oximetry 99 06/03/24 23:01 Oxygen Delivery Method Room Air 06/03/24 23:01 Oxygen Flow Rate 0 06/03/24 23:01 Pain Level 7 06/03/24 23:01 Medical Decision Making 59yo M with HTN presenting with left lower incisor/canine pain for the past two days. Known periodontal disease, next dental appointment schedule in about a month. Systemically well, no neck pain/facial swelling/trismus/fever. Vital signs reassuring on arrival; moderately hypertensive (pt states PCP is actively adjusting his home medications, he was advised to continue to see them for th is). On exam #23 & #22 tender to percussion with some gingival erythema, no abscess noted. Not septic, not concerning for Jaxon's, buccal infection, deep space neck infection; would not get labs or CT imaging. Will treat with 7 day course of amox/clauv and advised moving up dental appointment. Tylenol and toradol in the ED for pain. Discharged home; discharge instructions and return precautions were reviewed with patient who verbalized understanding. All questions were answered and he is in full agreement with the plan. Quality:SDOH Health Related Social Needs: No Data to Display PFSH All Active Problems (Updated 06/03/24 @ 23:13 by Constanza Mai MD) Pain, dental (Acute) Medical History Prediabetes Hypertension Ceruminosis Surgical History History of colonoscopy (~04/17/20) History of hernia repair inguinal by Emelyn. Social History Smoking/Tobacco Use Status: Former Tobacco Use Quit Date: 08/01/99 Smoking risk assessment performed?: Yes Alcohol Intake: current Alcohol Intake frequency: 3 or more drinks per day Alcohol type: hard liquor Drug use: Never Substance use type: does not use Housing: house Do you feel safe at home: Yes Do you feel safe in your relationship?: Yes
[2024-06-03] MEDS: Amoxicillin 875/Clav. 125 TAB PO (23:15)
[2024-06-03] MEDS: Acetaminophen 500 MG TAB 1000 MG PO (23:15)
[2024-06-03] MEDS: Ketorolac 15 MG/ML VIAL IM (23:15)
== END 2024-06-03 23:24 | disposition home or self-care (01) ==
PROVIDERS: Emergency Provider Student in an Organized Health Care Education/Training Program
DX: K08.89 Other specified disorders of teeth and supporting structures (principal); K05.6 Periodontal disease, unspecified; I10 Essential (primary) hypertension; Z87.891 Personal history of nicotine dependence
CPT/HCPCS: 96372; 99284; 99283; J1885

== ENCOUNTER 2025-04-08 14:41 | Outpatient (REF) | payer BC, SELFPAY ==
[2025-04-08 15:57] LABS: Abs Immature Grans 0.01 10^3/uL (0.0-0.06); HCT 49.7 % (40.0-50.0); HGB 17.2 g/dL (13.5-17.5); Immature Grans % 0.2 %; MCH 30.8 pg (27.0-33.0); MCHC 34.6 % (32.0-36.0); MCV 89 fL (80-95); MPV 11.0 fL (8.0-11.0); Platelet Count 230 10^3/uL (130-400); RBC 5.58 10^6/uL (4.36-5.78); RDW 13.1 % (11.8-14.1); RDW-SD 42.5 fL; WBC 6.37 10^3/uL (4.4-10.8)
[2025-04-08 16:20] LABS: ALT 24 U/L (16-63); AST 39 U/L (15-37); Albumin 4.3 g/dL (3.4-5.0); Alkaline Phosphatase 75 U/L (46-116); Anion Gap 10.3 mmol/L (3-11); BUN 9 mg/dL (7-18); Bilirubin, Total 0.9 mg/dL (0.2-1.0); CO2 26.7 mmol/L (21.0-32.0); Calcium 9.8 mg/dL (8.5-10.1); Chloride 102 mmol/L (98-107); Estimated GFR 85.63 (mL/min/1.73m2); Glucose 92 mg/dL (74-106); Potassium 4.5 mmol/L (3.5-5.1); Sodium 139 mmol/L (136-145); Total Protein 7.6 g/dL (6.4-8.2)
[2025-04-08 16:29] LABS: COMMENT (LAB VIEW ONLY) 55.06 mg/dL; Microalb ug/mg Crea 2.9 ug/mg Cr
== END 2025-04-08 14:42 | disposition home or self-care (01) ==
LOC: NCHCN 14:41
PROVIDERS: Visit Provider Student in an Organized Health Care Education/Training Program
DX: I10 Essential (primary) hypertension (principal)
CPT/HCPCS: 80053; 82043; 82570; 85025